=== PATIENT | female | born 1980 | race Caucasian/White ===

== ENCOUNTER 2016-09-13 12:24 | Emergency (ER) | payer BC ==
[~2016-09-13 12:24] MED LIST: BACITRACIN15 G1 TP; LEVOTHYROXINE100 MCG PO; LEXAPRO DPS20 MG PO; LIPITOR DPS10 MG PO; NORCO 5-325 TA1 EACH PO
--- NOTE | 2016-10-13 21:14 | ER ---
ADMIT: 09/13/2016 RM/LOC: ER [facility] MR#: [id number] [place], [place] [id number] [place] [address] Emergency Room Report SEX: F AGE: 36 : 1980 DATE: 09/13/2016 ADDENDUM: This patient comes into the ER because she has had chest pain for the 2-1/2 weeks. She was seen by her doctor. They did blood work and it was normal. She states the pain is not always there, it comes and goes. When it comes, it is sharp and stabbing. It does not make her short of breath but it hurts to breathe when she gets the pain. She does have a history of having a meningioma. On physical exam, she has no pain at this time. She has no pain with palpation in her chest and no pain with movement of her arms. Her abdomen is soft and nontender to palpation. CBC, CMP, and cardiac enzymes are normal and her D-dimer is within normal limits. We did call the doctor's office and we did get her lab report and her x-ray that was recently done which was also normal. She had normal vital signs here. I think this is more of a musculoskeletal-type pain. I wrote a prescription for meloxicam and Valium to be used p.r.n. she should follow up with Dr. Underwood in the next week if not feeling better. Please see my T-sheet this to send. JASIEL Horne / Fredi Minor MD / modl JOB #: [id number] CC: Fredi Minor MD, Attending Physician Roberto Underwood MD, Family Physician
== END 2016-09-13 14:20 | disposition home or self-care (01) ==
LOC: ER 12:24
DX: R07.9 Chest pain, unspecified (principal); E78.00 Pure hypercholesterolemia, unspecified; Z88.0 Allergy status to penicillin; Z90.710 Acquired absence of both cervix and uterus; Z85.820 Personal history of malignant melanoma of skin